=== PATIENT | male | born 1945 | race Caucasian/White ===

== ENCOUNTER 2018-08-10 17:35 | Inpatient (IN) ==
[2018-08-10] MEDS ORDERED: PATIENT'S OWN MED SUBQ SCH (20:00)
[2018-08-10] MEDS ORDERED: VANCOMYCIN IV PER PHARMACY MISC SCH (20:00)
[2018-08-10 20:42] LABS: BASO# 0.07 X1000 (0.0-0.2); BASO% 0.8 % (0.0-0.8); EOS% 4.7 % (0.0-10.0); HEMOGLOBIN 15.8 g/dL (14.0-18.0); IMM GRAN# 0.03 X1000 (0.0-0.04); IMM GRAN% 0.4 % (0.0-0.5); LYMPH# 2.96 X1000 (1.2-3.4); LYMPH% 34.6 % (20.5-51.1); MCH 32.5 PG (27-31); MCHC 35.1 g/dL (33-37); MCV 92.6 FL (81-99); MONO# 0.74 X1000 (0.11-0.59); MONO% 8.6 % (1.7-9.3); MPV 10.1 FL (7.4-10.4); NEUT# 4.36 X1000 (1.4-6.5); NEUT% 50.9 % (42.2-75.2); PLT 197 X1000 (130-400); RBC 4.86 XMIL (4.7-6.1); RDW 13.7 % (11.5-14.5); WBC 8.56 X1000 (4.8-10.8)
[2018-08-10 21:00] LABS: AGAP 9; ALB/GLOB RATIO 1.3; ALKALINE PHOSPHATASE 63 U/L (32-122); BUN 25 mg/dL (8-22); CALCIUM 9.4 mg/dL (8.8-10.2); CHLORIDE 103 mmol/L (98-107); COSMO 287; CREATININE 1.1 mg/dL (0.7-1.2); ESTIMATED GFR > 60; GLUCOSE 85 mg/dL (70-104); GOT 12 U/L (10-34); GPT 18 U/L (10-44); POTASSIUM 4.3 mmol/L (3.5-5.1); SODIUM 142 mmol/L (136-145); TCO2 30 mmol/L (25-35); TOTAL BILIRUBIN 0.25 mg/dL (0.20-1.00); TOTAL PROTEIN 7.2 g/dL (6.3-8.3)
[2018-08-10] MEDS ORDERED: VANCOMYCIN 2,000 MG in NS 500 ML IV ONE (21:00)
[2018-08-10 21:01] LABS: HEMOGLOBIN A1C 6.8 % (4.8-6.0)
--- NOTE | 2018-08-10 21:20 | Diag Imaging Result Doc PS360 ---
CHEST-2 VIEWS - 08/10/2018 INDICATION: SOB COMPARISON: None FINDINGS: There are sternotomy wires and an aortic valve replacement. There is a pacemaker in good position. Heart size is top normal. Pulmonary vascularity is grossly normal. No infiltrates or edema. No pneumothorax or pleural effusion. IMPRESSION: No acute disease. Electronically signed by Keaton Chapman 08/10/2018 9:18 PM
[2018-08-10] MEDS: BUSPAR PO SCH (21:52)
--- NOTE | 2018-08-10 22:54 | HISTORY AND PHYSICAL ---
CHIEF COMPLAINT: Nonhealing ulcer on the left leg about 3 inches in diameter with a foul-smelling discharge and redness consistent with cellulitis, started last week. HISTORY OF PRESENT ILLNESS: He is a 73-year-old white male, basically came in my office after outpatient treatment with left leg cellulitis with ulcer. Admitted to the hospital with possible MRSA. He has failed to improve with outpatient antibiotic for the last 1 week. As a result, a hospital admission was warranted. PAST MEDICAL HISTORY: CAD, early dementia, Folstein score 23/30, type 2 diabetes, hyperlipidemia, hypertension, hypothyroidism, rheumatoid arthritis. Left-sided weakness with right CVA, benign prostatic hypertrophy. PAST SURGICAL HISTORY: Permanent pacemaker bypass surgery replacement to the aortic valve. Recent prostate biopsy done by Dr. Hoover, negative. MEDICINES: Aricept 10 mg daily. BuSpar 30 mg p.o. b.i.d., Enbrel shots 25 mg every 2 weeks, folic acid 1 mg daily, Levaquin 500 daily. Metformin 1000 p.o. b.i.d., Namenda 10 mg daily, oxybutynin 10 b.i.d., insulin pump, methotrexate 2.5 mg 3 tablets once a week. ALLERGIES: Not known. SOCIAL HISTORY: . Three children. Lives in [place]. No smoking. No alcohol. FAMILY HISTORY: Father of [place] at 51. Mom at 78. PREVIOUS HEALTH MAINTENANCE: Artery flow studies 12/2016. ARNOLD 1.0. Influenza vaccine 12/2017. Pneumococcal 02/2012. Last physical exam 12/2017. Screening for AAA, 09/2013, normal. REVIEW OF SYSTEMS: HEENT: No headache. No vision problem. No earache. No sore throat. Neck: No goiter. No lymphadenopathy. No bruit. Cardiopulmonary: No chest pain, shortness of breath, PND, orthopnea. GI: No nausea, vomiting, abdominal pain. : History of BPH symptoms. Recent biopsy was negative and 4K score was 47%. Extremities: Swelling of legs on the left side with redness and also on the lateral part of the leg. Also has decreased sensory exam in both feet. Neuro: Stable deficits on the left side. PHYSICAL EXAMINATION: VITAL SIGNS: Temperature is 98.2, pulse 70, blood pressure 156/84, 5 feet 11 inches, 231 pounds. HEENT: Atraumatic, normocephalic. Pupils equal, react to light. TMs are normal. Nose and throat within normal limits. NECK: Supple. No lymphadenopathy. CHEST: Bilateral air entry. HEART: Sounds are regular. Belly is soft, obese, nontender. Good bowel sounds. EXTREMITIES: Left leg is swollen with redness, consistent with cellulitis with an ulcer about 3 inches in diameter, mid lateral part of the leg with foul smelling discharge noted. NEURO: Left hemiparesis noted. LABORATORY DATA: CBC: White cell count 8.5, hematocrit 45, platelets 197. D- dimer 0.56. Sodium 142, potassium 4.3, chloride 103, BUN 25, creatinine 1.9, glucose 85. A1c 6.8. Liver function tests proBNP were normal. ASSESSMENT AND PLAN: 1. A 73-year-old white male admitted to the hospital with left leg cellulitis with left hemiplegia and also an ulcer not healing. Outpatient treatment. Plan is IV vancomycin. Wound culture as well as consult by Babita. 2. D-dimer is normal no need for venous Dopplers at this time. 3. Lovenox for deep vein thrombosis prophylaxis. 4. Elevated PSA, 4K score 47%. Biopsy of the prostate is negative x2 by Dr. Hoover. 5. Early dementia on Aricept 10 mg daily. 6. Chronic anxiety on BuSpar 30 p.o. b.i.d. 7. Hypothyroidism, on Synthroid. 8. Hypertension on Norvasc 5 mg daily, benazepril 20 daily. 9. Insulin-dependent diabetes. Currently on insulin pump. 10. Rheumatoid arthritis on methotrexate, Enbrel. Will hold at this time given the risk of infection. Reconcile home medications. 11. History of aortic stenosis, status post aortic valve replacement, stable. 12. Right cerebrovascular accident with left hemiparesis, stable. 13. Complete heart block with status post permanent pacemaker. 14. History of coronary artery disease with bypass surgery, left internal mammary artery to left anterior descending, currently stable. We will follow up. cc: Stephen Mendiola MD MTDD
[2018-08-11] MEDS: ARICEPT PO SCH (09:07)
[2018-08-11] MEDS: NORVASC PO SCH (09:08)
[2018-08-11] MEDS: SYNTHROID PO SCH (09:08)
[2018-08-11] MEDS: ZYRTEC PO SCH (09:08)
[2018-08-11] MEDS: COLACE PO SCH (09:08)
[2018-08-11] MEDS: ASPIRIN PO SCH (09:08)
[2018-08-11] MEDS: LOTENSIN PO SCH (09:09)
[2018-08-11] MEDS: LOVENOX SUBQ SCH (09:09)
[2018-08-11] MEDS: BUSPAR PO SCH ×3 (09:09→20:14)
[2018-08-11] MEDS: VANCOMYCIN 1,800 MG in NS 250 ML IV SCH (16:12)
--- NOTE | 2018-08-11 19:07 | PROGRESS NOTE ---
DATE: 08/11/2018 SUBJECTIVE: Apparently, patient had a vasovagal attack embedded nurse while he was moving the bowels. Clinically he is doing very well, slightly constipated. Left leg is grossly edematous with redness with a 2 inch ulcer with a foul smelling discharge. Wound culture was obtained. PHYSICAL EXAMINATION: Vital Signs: He is afebrile, pulse 79, blood pressure is 148/76, 97% on room air. HEENT: Within normal limits. Chest: Clear. Heart: Sounds are regular. Abdomen: Belly is soft, nontender. Extremities: Left hemiparesis. Left leg has diffuse cellulitis noted. INVESTIGATIONS: Reviewed. A1c 6.8. Wound cultures are pending. ASSESSMENT AND PLAN: 1. Left leg cellulitis, most likely Methicillin-resistant Staphylococcus aureus. Continue intravenous vancomycin. Wound culture report pending. 2. Near syncope, vasovagal. Continue to monitor in telemetry. 3. D-dimer is negative. Continue with deep venous thrombosis prophylaxis. 4. Type 2 diabetes, insulin dependent. 5. Rheumatoid arthritis, off of methotrexate and Enbrel due to infection. 6. Coronary artery disease, status post bypass, stable. Continue present treatment. 7. Hypothyroidism, on Synthroid. 8. Will keep her over the weekend and reassess on Tuesday. LEVEL OF DOCUMENTATION: 25 minutes. cc: Stephen Mendiola MD
[2018-08-12] MEDS: ZYRTEC PO SCH (08:45)
[2018-08-12] MEDS: ASPIRIN PO SCH (08:45)
[2018-08-12] MEDS: BUSPAR PO SCH ×2 (08:45→16:53)
[2018-08-12] MEDS: SYNTHROID PO SCH (08:45)
[2018-08-12] MEDS: COLACE PO SCH (08:45)
[2018-08-12] MEDS: ARICEPT PO SCH (08:45)
[2018-08-12] MEDS: NORVASC PO SCH (08:46)
[2018-08-12] MEDS: LOTENSIN PO SCH (08:46)
[2018-08-12] MEDS: LOVENOX SUBQ SCH (08:46)
[2018-08-12] MEDS: VANCOMYCIN 1,800 MG in NS 250 ML IV SCH (11:35)
--- NOTE | 2018-08-12 12:52 | PROGRESS NOTE ---
DATE: 08/12/2018 SUBJECTIVE: Patient is stable. He is alert. Answers questions appropriately. He is eating well and had a bowel movement this morning, as he did yesterday. He has had no further presyncopal episodes. OBJECTIVE: Vital signs: Afebrile, pulse 95, respirations 16, blood pressure 157/91, O2 saturation on room air 97%. Cardiovascular: Regular rate and rhythm without murmur. Lungs: Clear. Abdomen: Protuberant, soft. Active bowel sounds. Nontender, nondistended. Extremities: No edema. There is mild brownish discoloration to the right hensley with no skin breakdown, no redness there. The left hensley has prominent redness and there is an ulcer that is currently dressed on the distal left mid to lateral hensley area. The patient says it seems about the same. Neurologic: Patient has left hemiparesis. No major facial asymmetry. LABORATORY DATA: Blood sugars in the mid 100s to low 200s. White count on admission was normal. ASSESSMENT: 1. Cellulitis of left lower extremity with a diabetic ulceration there as well. 2. Vasovagal syncope x1 yesterday. 3. Insulin-requiring diabetes mellitus, on insulin pump with A1c of 6.8. 4. Rheumatoid arthritis, off of methotrexate and Enbrel due to his current infection. 5. Coronary artery disease. 6. Hypothyroidism. 7. Hypertension. PLAN: We will add Kefzol to his vancomycin. Culture of the wound shows no growth and that is the final report, so we will need to broaden out to cover methicillin-sensitive Staph and other pathogens. Wound seems stable. Continue antihypertensives, monitoring of blood sugar and prophylaxis of DVT with Lovenox. cc: MD Stephen Wellington MD
[2018-08-12] MEDS: KEFZOL 1 GM/D5W 1 GM/50 ML IVPB IV SCH ×2 (14:02→21:29)
[2018-08-12] MEDS: DITROPAN PO SCH (16:53)
[2018-08-13] MEDS: VANCOMYCIN 1,800 MG in NS 250 ML IV SCH ×2 (03:18→23:50)
[2018-08-13] MEDS: KEFZOL 1 GM/D5W 1 GM/50 ML IVPB IV SCH ×3 (05:49→20:13)
[2018-08-13] MEDS: ARICEPT PO SCH (08:48)
[2018-08-13] MEDS: NAMENDA PO SCH (08:48)
[2018-08-13] MEDS: COLACE PO SCH (08:48)
[2018-08-13] MEDS: LOTENSIN PO SCH (08:48)
[2018-08-13] MEDS: ASPIRIN PO SCH (08:48)
[2018-08-13] MEDS: NORVASC PO SCH (08:48)
[2018-08-13] MEDS: SYNTHROID PO SCH (08:48)
[2018-08-13] MEDS: BUSPAR PO SCH ×2 (08:48→17:11)
[2018-08-13] MEDS: ZYRTEC PO SCH (08:48)
[2018-08-13] MEDS: DITROPAN PO SCH ×3 (08:48→17:11)
[2018-08-13] MEDS: LOVENOX SUBQ SCH (08:48)
--- NOTE | 2018-08-13 12:33 | PROGRESS NOTE ---
DATE: 08/13/2018 SUBJECTIVE: Patient is stable. OBJECTIVE: Afebrile. Vital signs stable. Blood pressure a little elevated at 164/98, O2 saturation 91%. CV: RRR. Lungs: Clear. Abdomen: Protuberant, soft, nontender. Active bowel sounds. Extremities: No major edema. Some redness over the right distal hensley but much more redness of the left distal hensley, ulceration there that is dressed. Neurologic: Moves but patient has chronic left hemiparesis. ASSESSMENT: 1. Cellulitis of left lower extremity with diabetic ulceration there. 2. Insulin-requiring diabetes mellitus. 3. Rheumatoid arthritis, off methotrexate and Enbrel due to his current infection. 4. Coronary artery disease. 5. Hypothyroidism. 6. Hypertension. PLAN: The patient is growing out some diphtheroids on the culture but nothing else so we will continue Kefzol and vancomycin, and his other medications and supportive measures, monitoring his blood sugars closely. Blood sugars in the low 200s primarily. cc: MD Stephen Wellington MD
[2018-08-14] MEDS: KEFZOL 1 GM/D5W 1 GM/50 ML IVPB IV SCH ×3 (05:51→20:59)
[2018-08-14] MEDS: NAMENDA PO SCH (10:45)
[2018-08-14] MEDS: LOTENSIN PO SCH (10:45)
[2018-08-14] MEDS: COLACE PO SCH (10:45)
[2018-08-14] MEDS: NORVASC PO SCH (10:45)
[2018-08-14] MEDS: ZYRTEC PO SCH (10:45)
[2018-08-14] MEDS: BUSPAR PO SCH ×2 (10:45→16:18)
[2018-08-14] MEDS: SYNTHROID PO SCH (10:46)
[2018-08-14] MEDS: ASPIRIN PO SCH (10:46)
[2018-08-14] MEDS: LOVENOX SUBQ SCH (10:46)
[2018-08-14] MEDS: DITROPAN PO SCH ×3 (10:46→16:18)
[2018-08-14] MEDS: ARICEPT PO SCH (10:47)
[2018-08-14] MEDS: VANCOMYCIN 1,800 MG in NS 250 ML IV SCH (16:17)
--- NOTE | 2018-08-14 19:37 | PROGRESS NOTE ---
DATE: 08/14/2018 SUBJECTIVE: The patient is anxious to go home. cannot handle. He is still bedridden with a stroke. Left leg redness is much improved. Ulcer is slowly healing. Cultures grew diphtheroids. OBJECTIVE: On examination, temperature is 98 degrees, pulse 97, blood pressure 129/81. HEENT: Within normal limits. Neck: Supple. Chest: Clear. Heart: Sounds are regular. Belly is soft, nontender. Neuro: Stable deficits. MICROBIOLOGY: Diphtheroids. ASSESSMENT AND PLAN: 1. Left leg cellulitis, improving on currently on IV cefazolin q.8 and discontinue vancomycin. 2. Right cerebrovascular accident with left hemiparesis, deconditioning with underlying comorbid conditions. Physical therapy. 3. Deep vein thrombosis prophylaxis with Lovenox. Gastrointestinal prophylaxis with IV Pepcid. Out of the bed with physical therapy. DISPOSITION: Family has agreed upon for rehab placement. Will do the administrator social welfare consult. LEVEL OF DOCUMENTATION: 25 minutes cc: Stephen Mendiola MD MTDD
[2018-08-15] MEDS: KEFZOL 1 GM/D5W 1 GM/50 ML IVPB IV SCH ×3 (05:45→20:28)
[2018-08-15] MEDS: DITROPAN PO SCH ×3 (08:52→18:42)
[2018-08-15] MEDS: LOTENSIN PO SCH (08:52)
[2018-08-15] MEDS: SYNTHROID PO SCH (08:52)
[2018-08-15] MEDS: ASPIRIN PO SCH (08:53)
[2018-08-15] MEDS: NORVASC PO SCH (08:53)
[2018-08-15] MEDS: BUSPAR PO SCH ×2 (08:53→18:42)
[2018-08-15] MEDS: COLACE PO SCH (08:53)
[2018-08-15] MEDS: ARICEPT PO SCH (08:53)
[2018-08-15] MEDS: LOVENOX SUBQ SCH (08:53)
[2018-08-15] MEDS: ZYRTEC PO SCH (08:53)
[2018-08-15] MEDS: NAMENDA PO SCH (08:53)
--- NOTE | 2018-08-15 18:58 | PROGRESS NOTE ---
DATE: 08/15/2018 SUBJECTIVE: Left leg is improved. He is able to get out of the bed. Family decided to go for rehab. OBJECTIVE: On exam temperature is 97 degrees, pulse is 90. Vital signs are stable. HEENT exam within normal limits. Neck is supple. No lymphadenopathy. Marked improvement of cellulitis as well as ulcer is healing. ASSESSMENT AND PLAN: 1. Cerebrovascular accident on the right side with left hemiparesis. Continue physical therapy. 2. Left leg cellulitis, improving on cefazolin. 3. Deconditioning, mild cognitive improvement. Waiting for Social Service consult for rehab placement. Continue present treatment. Family has agreed upon for rehab placement when a bed is available. We will discharge in the morning. Level of documentation 15 minutes. cc: Stephen Mendiola MD
[2018-08-15] MEDS: HUMULIN R SUBQ SCH (22:11)
[2018-08-16] MEDS: KEFZOL 1 GM/D5W 1 GM/50 ML IVPB IV SCH ×3 (04:16→21:03)
[2018-08-16] MEDS: HUMULIN R SUBQ SCH ×4 (06:32→21:04)
--- NOTE | 2018-08-16 08:50 | DISCHARGE SUMMARY ---
ADMISSION DATE: 08/10/2018 DISCHARGE DATE: 08/16/2018 DISCHARGE DIAGNOSES: 1. Left leg cellulitis. 2. Left leg traumatic ulcer 1 cm healing. OTHER DIAGNOSES: 1. CAD. 2. Dementia. Folstein score 23/30. 3. Type 2 diabetes. 4. Hyperlipidemia. 5. Hypertension. 6. Hypothyroidism. 7. Rheumatoid arthritis. 8. Left-sided weakness with right CVA. 9. Benign prostatic hypertrophy. BRIEF HISTORY: Please see the H and P that was done on 08/10/2018. In brief, he is a 73-year-old white male admitted to the hospital with left leg cellulitis and nonhealing ulcer on the lateral part of the left leg. HOSPITAL COURSE: Patient was given IV antibiotics with vancomycin. Subsequently, changed to the Keflex. Wound cultures grew diphtheroids. He has complete resolution of cellulitis, and the ulcer is healing very well. He has a lot of comorbid conditions for which family is requesting to go for rehab for convalescence. Rest of the hospital course was uneventful. LABORATORY: CBC: White cell count 8.5, hematocrit 45 and platelets 197,000. D-dimer 0.56. SMA 7 is normal. A1c 6.8. LFTs: ProBNP was normal. DISCHARGE INSTRUCTIONS: 1. Hold the Enbrel methotrexate until ulcer healing. Continue insulin pump, aspirin 325 daily, amlodipine 5 mg daily, Naprosyn 500 b.i.d. as needed, benazepril 20 mg daily, Synthroid 137 mcg daily, BuSpar 30 p.o. b.i.d., cetirizine 10 daily, Colace 100 daily, Aricept 10 daily, Myrbetriq 50 daily, Flonase as needed, Namenda 5 daily, Keflex 500 t.i.d. for 10 days. 2. Local wound care. 3. Out of the bed with physical therapy. 4. Follow up on sliding scale with insulin coverage. 5. Follow up in my office in 2 weeks. cc: Stephen Mendiola MD
[2018-08-16] MEDS: ZYRTEC PO SCH (09:00)
[2018-08-16] MEDS: LOTENSIN PO SCH (09:00)
[2018-08-16] MEDS: BUSPAR PO SCH ×2 (09:00→16:54)
[2018-08-16] MEDS: SYNTHROID PO SCH (09:00)
[2018-08-16] MEDS: COLACE PO SCH (09:00)
[2018-08-16] MEDS: ARICEPT PO SCH (09:00)
[2018-08-16] MEDS: NORVASC PO SCH (09:00)
[2018-08-16] MEDS: NAMENDA PO SCH (09:00)
[2018-08-16] MEDS: DITROPAN PO SCH ×3 (09:00→16:53)
[2018-08-16] MEDS: ASPIRIN PO SCH (09:00)
[2018-08-16] MEDS: LOVENOX SUBQ SCH (09:01)
--- NOTE | 2018-08-16 19:45 | PROGRESS NOTE ---
DATE: 08/16/2018 SUBJECTIVE: The paperwork was done for the fdc placement. I spoke to social science manager. Waiting for bed placement. REVIEW OF SYSTEMS: None reported. EXAMINATION: Temperature is 98 degrees, pulse is 89. Blood pressure is stable. PHYSICAL EXAMINATION: No change. Left leg ulcer and redness is much improved. ASSESSMENT AND PLAN: 1. Resolving left leg cellulitis. 2. The patient is ready to be discharged. 3. The patient's wants to go for rehab. He is reluctant to go. Follow up with Chief Information Officer for disposition. Paperwork was done for the fdc placement. 4. Other options are discussed with the patient's . 5. Insulin dependent diabetes off on insulin pump. Follow up on sliding scale with insulin coverage. Continue present treatment. Hold the methotrexate and Enbrel until the infection subsides for underlying rheumatoid arthritis. LEVEL OF DOCUMENTATION: 25 minutes. cc: Stephen Mendiola MD
[2018-08-17] MEDS: KEFZOL 1 GM/D5W 1 GM/50 ML IVPB IV SCH ×2 (04:06→14:09)
[2018-08-17] MEDS: HUMULIN R SUBQ SCH ×2 (06:18→11:49)
[2018-08-17] MEDS: NAMENDA PO SCH ×2 (07:58→08:00)
[2018-08-17] MEDS: ARICEPT PO SCH ×2 (07:58→08:00)
[2018-08-17] MEDS: LOVENOX SUBQ SCH (07:59)
[2018-08-17] MEDS: LOTENSIN PO SCH (07:59)
[2018-08-17] MEDS: COLACE PO SCH (07:59)
[2018-08-17] MEDS: SYNTHROID PO SCH (07:59)
[2018-08-17] MEDS: DITROPAN PO SCH ×2 (07:59→14:09)
[2018-08-17] MEDS: NORVASC PO SCH (07:59)
[2018-08-17] MEDS: BUSPAR PO SCH (07:59)
[2018-08-17] MEDS: ZYRTEC PO SCH (07:59)
[2018-08-17] MEDS: ASPIRIN PO SCH (07:59)
[2018-08-17 13:50] VITALS: BP 119/50
== END 2018-08-17 16:40 | DRG 603 ==
LOC: DIRADM 17:35 → 3N 18:24
PROVIDERS: ADMIT Internal Medicine; ATTEND Internal Medicine
CPT/HCPCS: 71020; 71046; 80053; 80202; 82948; 83036; 83880; 85025; 85379; 87070; 97110; 97162; 97530; A9270; J0690; J1650; J3370; J7040; J7050; XXXXX

== ENCOUNTER 2019-02-10 17:30 | Observation (INO) ==
[2019-02-10] MEDS ORDERED: STERILE WATER INJ. INJ ONE (18:53)
[2019-02-10] MEDS ORDERED: GEODON IM ONE (18:53)
--- NOTE | 2019-02-10 20:12 | EKG Report ---
Test Performed on : 02/10/2019 8:05:05 PM Test Reason : AMS Blood Pressure : / mmHG Vent. Rate : 080 BPM Atrial Rate : 080 BPM P-R Int : 160 ms QRS Dur : 094 ms QT Int : 398 ms P-R-T Axes : 040 015 068 degrees QTc Int : 459 ms Normal sinus rhythm. Normal ECG When compared with ECG of 12-AUG-2015 07:20, T wave inversion no longer evident in Lateral leads Unconfirmed Result
[2019-02-10 20:32] LABS: BASO# 0.06 X1000 (0.0-0.2); BASO% 0.7 % (0.0-0.8); EOS# 0.24 X1000 (0.0-0.7); EOS% 2.9 % (0.0-10.0); HEMATOCRIT 45.8 % (42.0-52.0); HEMOGLOBIN 15.6 g/dL (14.0-18.0); IMM GRAN# 0.02 X1000 (0.0-0.04); IMM GRAN% 0.2 % (0.0-0.5); LYMPH% 29.7 % (20.5-51.1); MCH 32.2 PG (27-31); MCHC 34.1 g/dL (33-37); MCV 94.4 FL (81-99); MONO# 0.58 X1000 (0.11-0.59); MONO% 6.9 % (1.7-9.3); NEUT# 5.01 X1000 (1.4-6.5); NEUT% 59.6 % (42.2-75.2); PLT 259 X1000 (130-400); RBC 4.85 XMIL (4.7-6.1); RDW 13.4 % (11.5-14.5); WBC 8.41 X1000 (4.8-10.8)
[2019-02-10 20:39] LABS: INR 0.98; PROTIME 13.1 Seconds (11.0-16.0)
[2019-02-10 20:40] LABS: PTT 26.7 Seconds (22.3-41.8)
[2019-02-10 20:55] LABS: AGAP 14; ALB/GLOB RATIO 1.6; ALBUMIN 4.1 g/dL (3.5-5.0); ALKALINE PHOSPHATASE 76 U/L (32-122); BUN 20 mg/dL (8-22); CALCIUM 9.5 mg/dL (8.8-10.2); CHLORIDE 101 mmol/L (98-107); CK PROFILE 95 U/L (24-204); COSMO 287; ESTIMATED GFR > 60; GLUCOSE 180 mg/dL (70-104); GOT 18 U/L (10-34); GPT 40 U/L (10-44); POTASSIUM 4.4 mmol/L (3.5-5.1); SODIUM 140 mmol/L (136-145); TCO2 25 mmol/L (25-35); TOTAL BILIRUBIN 0.36 mg/dL (0.20-1.00); TOTAL PROTEIN 6.7 g/dL (6.3-8.3)
--- NOTE | 2019-02-10 20:59 | Diag Imaging Result Doc PS360 ---
EXAM: CT HEAD W/O CONTRAST HISTORY: altered mental status TECHNIQUE: CT head without contrast COMPARISON: 08/18/2017 FINDINGS: No parenchymal hemorrhage. No epidural or subdural hematoma. No subarachnoid hemorrhage. Multiple old infarcts as well as chronic microvascular ischemic changes. No mass identified on this noncontrasted exam. No hydrocephalus. No sinus opacification. IMPRESSION: 1.No hemorrhage 2.Multiple old infarcts as well as chronic microvascular ischemic changes. This exam was performed using automated exposure control, adjustment of mA or kV according to patient size, and/or use of iterative reconstruction technique. Electronically signed by Harrison Easley 02/10/2019 8:57 PM
--- NOTE | 2019-02-10 21:02 | Diag Imaging Result Doc PS360 ---
EXAM: CHEST-PORTABLE HISTORY: ams TECHNIQUE: Single view COMPARISON: 08/10/2018 FINDINGS: The lungs are well expanded. The heart is not enlarged. There are sternal wires and a left-sided pacemaker. The vessels are not distended. There are no infiltrates. No effusion identified. IMPRESSION: Negative exam. Electronically signed by aHrrison Easley 02/10/2019 9:00 PM
[2019-02-10 21:21] LABS: URINE SOURCE CLEAN CATCH
[2019-02-10 21:35] LABS: BILIRUBIN URINE NEGATIVE (NEGATIVE); BLOOD URINE NEGATIVE (NEGATIVE); COLOR YELLOW; GLUCOSE URINE TRACE mg/dL (NEGATIVE); KETONE URINE NEGATIVE (NEGATIVE); LEUKOCYTES URINE LARGE (NEGATIVE); NITRITE URINE NEGATIVE (NEGATIVE); PROTEIN URINE TRACE mg/dL (NEGATIVE); SP GRAVITY URINE 1.016; TURBIDITY URINE HAZY (CLEAR); UROBILINOGEN URINE NORMAL (NORMAL)
[2019-02-10 21:36] LABS: UR EPITHELIAL CELLS <10 /HPF (<10); URINE BACTERIA 4+ /HPF; URINE RBC <10 /HPF (<10); URINE WBC TNTC /HPF (<10)
[2019-02-10] MEDS ORDERED: ATIVAN IV ONE (21:36)
[2019-02-10 21:37] LABS: UR AMPHETAMINES QUAL NONE DETECTED (NONE DETECT); UR BARBITUATES QUAL NONE DETECTED (NONE DETECT); UR BENZODIAZEPIN QUAL NONE DETECTED (NONE DETECT); UR CANNABINOIDS QUAL NONE DETECTED (NONE DETECT); UR COCAINE QUAL NONE DETECTED (NONE DETECT); UR METHADONE QUAL NONE DETECTED (NONE DETECT); UR OPIATES QUAL NONE DETECTED (NONE DETECT); UR OXYCODONE QUAL NONE DETECTED (NONE DETECT); UR PCP QUAL NONE DETECTED (NONE DETECT)
[2019-02-10 21:39] LABS: FREE T4 1.39 ng/dL (0.93-1.70); TSH 4.24 uIUmL (0.27-4.20)
--- NOTE | 2019-02-10 22:38 | PROVIDER DOCUMENTATION ---
This chart was entered by Markie Velez Scribe, acting as scribe for Penny Torres MD. HPI-Psychological Disorder - General Chief Complaint: Altered Mental Status Stated Complaint: DEMENTIA Time Seen by Provider: 02/10/19 18:39 Source: patient Allergies/Adverse Reactions: Patient Allergies Allergy/AdvReac Type Severity Reaction Status Date / Time Sulfa (Sulfonamide Allergy RASH Verified 05/08/18 09:03 Antibiotics) codeine AdvReac Unknown Verified 05/08/18 09:03 diazepam [From Valium] AdvReac Unknown Verified 05/08/18 09:03 Latex, Natural Rubber AdvReac ITCHING Verified 05/08/18 09:03 Home Medications: Home Medication List Medication Instructions Recorded Confirmed Last Taken Type Amlodipine Besylate 5 mg PO DAILY 08/11/15 02/10/19 02/10/19 History Aspirin 325 mg PO DAILY 08/11/15 02/10/19 02/10/19 History BENAZEpril [Lotensin] 20 mg PO DAILY 08/11/15 02/10/19 02/10/19 History Levothyroxine [Synthroid] 137 microgm PO DAILY 08/11/15 02/10/19 02/10/19 History Naproxen 500 mg PO BID 08/11/15 02/10/19 02/10/19 History Subcutaneous Insulin Pump [Insulin 1 each MC DIRECTED 01/04/17 02/10/19 02/10/19 History Pump] Buspirone [Buspar] 30 mg PO BID 05/08/18 02/10/19 02/10/19 History Cetirizine [Zyrtec] 10 mg PO DAILY 05/08/18 02/10/19 02/10/19 History Donepezil [Aricept] 10 mg PO DAILY 05/08/18 02/10/19 02/10/19 History Memantine [Namenda] 10 mg PO DAILY 08/10/18 02/10/19 02/10/19 History Mirabegron [Myrbetriq] 50 mg PO DAILY 08/10/18 02/10/19 02/10/19 History Escitalopram [Lexapro] 10 mg PO DAILY 02/10/19 02/10/19 02/10/19 History Oxybutynin Chloride [Oxybutynin 10 mg PO TID 02/10/19 02/10/19 02/10/19 History Chloride ER] - History of Present Illness-Psych Nature of Presenting Problem: Pt is a 73 y/o with a h/o dementia, compliant with medications, brought to the ED by his for behavioral changes, being aggressive to her the last 2 months and got worse yesterday. She reports he his Dementia with some Hallucination lately. She has noticed a cough. His aggressive behaviour toward her is of concern to her . Yesterday, he reports having a knife and that he wants to kill himself with him. A visible bruise was noted on ,s right arm Onset/Duration: reports: other (2 months) Timing: reports: still present, getting worse Severity: reports: mild Situational problems related to:: reports: spouse Psychiatric Complaints: reports: angry, agitated, hallucinating Substance Use: reports: none/never Previous psych related hospitalizations?: No Patient arrived by:: private car Similar Symptoms Previously?: Yes Recently seen or treated by another doctor?: Yes Review of Systems - Adult - REVIEW OF SYSTEMS - ADULT ROS:: ROS per family () Constitutional: denies: chills, fever Eyes: reports: no symptoms reported Ears, Nose, Mouth & Throat: denies: ear pain, hearing loss Cardiovascular: denies: chest pain, edema Respiratory: reports: cough. denies: shortness of breath, wheezing Gastrointestinal: denies: abdominal pain, nausea, vomiting Genitourinary: reports: no symptoms reported Musculoskeletal: denies: back pain, neck pain Integumentary: reports: no symptoms reported Neurological: denies: dizziness/vertigo, headache/migraines Psychiatric: reports: emotional problems, suicidal thoughts Endocrine: reports: no symptoms reported Hematologic/Lymphatic: reports: no symptoms reported Allergic/Immunologic: reports: no symptoms reported All Other Systems: Reviewed and Negative Past History - Adult - PAST MEDICAL HISTORY-ADULT Review of Records: reports: Old Records Reviewed, Nursing Assessment Review, Medications Reviewed, Social history reviewed & non-contributory. Cardiovascular: reports: HTN Respiratory: reports: denies history Gastrointestinal: reports: denies history Genitourinary: reports: denies history Musculoskeletal: reports: denies history Neurological: reports: CVA Psychiatric: reports: other (Alzheimers) Endocrine/Immune: reports: Diabetes - IMMUNIZATION STATUS Childhood Immunizations: See Nurse Assessment Flu Vaccine: See Nurse Assessment - FAMILY HISTORY Family History: reviewed, not pertinent - SOCIAL HISTORY Smoking: non-smoker Substance Use: none/never Alcohol Use Frequency: never Living Situation: family Physical Exam-Psych Focus - Physical Exam-Psych Initial Vital Signs Reviewed: Yes Appearance: appropriate appearance, neat, combative (with his ), impaired insight, other Neurological: alert, oriented x 3, agitated (confused) Behavior/Eye Contact/Speech: cooperative, good eye contact Thoughts/Hallucinations: paranoid. negative: normal thought pattern, phobic HENMT: moist mucous membranes, normal ENT inspection, pharynx normal Neck: non-tender, full range of motion, supple, normal inspection Respiratory: lungs clear, normal breath sounds, no pleuratic chest pain, no respiratory distress Cardiovascular: normal peripheral pulses, regular rate, rhythm Abdominal Exam: normal bowel sounds, non tender, soft Back Exam: normal inspection, no CVA tenderness, no vertebral tenderness Extremity: normal range of motion, normal gait. negative: normal inspection (venastatis lower extremities) Integumentary: normal color, normal turgor, warm/dry Progress - PLAN OF CARE/RESULTS Progress/Plan/Lab Results: Laboratory Results - last 24 hr 02/10/19 02/10/19 02/10/19 18:54 20:12 20:12 WBC 8.41 RBC 4.85 Hgb 15.6 Hct 45.8 MCV 94.4 MCH 32.2 H MCHC 34.1 RDW Std Deviation 13.4 Plt Count 259 MPV 10.0 Immature Gran % (Auto) 0.2 Neut % (Auto) 59.6 Lymph % (Auto) 29.7 Wilkinson % (Auto) 6.9 Eos % (Auto) 2.9 Baso % (Auto) 0.7 Immature Gran # (Auto) 0.02 Neut # (Auto) 5.01 Lymph # (Auto) 2.50 Wilkinson # (Auto) 0.58 Eos # (Auto) 0.24 Baso # (Auto) 0.06 PT INR PTT (Actin FS) Sodium Potassium Chloride Carbon Dioxide Anion Gap BUN Creatinine Estimated GFR/1.73 m2 BUN/Creatinine Ratio Glucose POC Glucose 153 H Calculated Osmolality Calcium Total Bilirubin AST ALT Alkaline Phosphatase Creatine Kinase Troponin T Total Protein Albumin Globulin Albumin/Globulin Ratio Plasma Lactate Vitamin B12 TSH Free T4 Urine Source Urine Color Urine Turbidity Urine pH Ur Specific [place] Urine Protein Ur Glucose (Stick) Ur Ketones (Stick) Urine Blood Urine Nitrite Urine Bilirubin Urobilinogen Dipstick Urine Leukocytes Urine WBC (Auto) Urine RBC (Auto) U Epithel Cells (Auto) Urine Bacteria (Auto) Urine Opiates Screen Ur Oxycodone Screen Ur Methadone, Qual Ur Barbiturates Screen Ur Phencyclidine Scrn Ur Amphetamines Screen U Benzodiazepines Scrn Urine Cocaine Screen U Cannabinoids Screen Plasma/Serum Ethyl Alc 02/10/19 02/10/19 02/10/19 20:12 20:12 20:12 WBC RBC Hgb Hct MCV MCH MCHC RDW Std Deviation Plt Count MPV Immature Gran % (Auto) Neut % (Auto) Lymph % (Auto) Wilkinson % (Auto) Eos % (Auto) Baso % (Auto) Immature Gran # (Auto) Neut # (Auto) Lymph # (Auto) Wilkinson # (Auto) Eos # (Auto) Baso # (Auto) PT 13.1 INR 0.98 PTT (Actin FS) 26.7 Sodium 140 Potassium 4.4 Chloride 101 Carbon Dioxide 25 Anion Gap 14 BUN 20 Creatinine 1.0 Estimated GFR/1.73 m2 > 60 BUN/Creatinine Ratio 20 Glucose 180 H POC Glucose Calculated Osmolality 287 Calcium 9.5 Total Bilirubin 0.36 AST 18 ALT 40 Alkaline Phosphatase 76 Creatine Kinase 95 Troponin T Total Protein 6.7 Albumin 4.1 Globulin 2.6 Albumin/Globulin Ratio 1.6 Plasma Lactate 0.7 Vitamin B12 TSH Free T4 Urine Source Urine Color Urine Turbidity Urine pH Ur Specific [place] Urine Protein Ur Glucose (Stick) Ur Ketones (Stick) Urine Blood Urine Nitrite Urine Bilirubin Urobilinogen Dipstick Urine Leukocytes Urine WBC (Auto) Urine RBC (Auto) U Epithel Cells (Auto) Urine Bacteria (Auto) Urine Opiates Screen Ur Oxycodone Screen Ur Methadone, Qual Ur Barbiturates Screen Ur Phencyclidine Scrn Ur Amphetamines Screen U Benzodiazepines Scrn Urine Cocaine Screen U Cannabinoids Screen Plasma/Serum Ethyl Alc 02/10/19 02/10/19 02/10/19 20:12 20:12 21:15 WBC RBC Hgb Hct MCV MCH MCHC RDW Std Deviation Plt Count MPV Immature Gran % (Auto) Neut % (Auto) Lymph % (Auto) Wilkinson % (Auto) Eos % (Auto) Baso % (Auto) Immature Gran # (Auto) Neut # (Auto) Lymph # (Auto) Wilkinson # (Auto) Eos # (Auto) Baso # (Auto) PT INR PTT (Actin FS) Sodium Potassium Chloride Carbon Dioxide Anion Gap BUN Creatinine Estimated GFR/1.73 m2 BUN/Creatinine Ratio Glucose POC Glucose Calculated Osmolality Calcium Total Bilirubin AST ALT Alkaline Phosphatase Creatine Kinase Troponin T < 0.010 Total Protein Albumin Globulin Albumin/Globulin Ratio Plasma Lactate Vitamin B12 514 TSH 4.24 H Free T4 1.39 Urine Source CLEAN CATCH Urine Color YELLOW Urine Turbidity HAZY Urine pH 6.0 Ur Specific [place] 1.016 Urine Protein TRACE A Ur Glucose (Stick) TRACE Ur Ketones (Stick) NEGATIVE Urine Blood NEGATIVE Urine Nitrite NEGATIVE Urine Bilirubin NEGATIVE Urobilinogen Dipstick NORMAL Urine Leukocytes LARGE A Urine WBC (Auto) TNTC A Urine RBC (Auto) <10 U Epithel Cells (Auto) <10 Urine Bacteria (Auto) 4+ Urine Opiates Screen Ur Oxycodone Screen Ur Methadone, Qual Ur Barbiturates Screen Ur Phencyclidine Scrn Ur Amphetamines Screen U Benzodiazepines Scrn Urine Cocaine Screen U Cannabinoids Screen Plasma/Serum Ethyl Alc 02/10/19 21:15 WBC RBC Hgb Hct MCV MCH MCHC RDW Std Deviation Plt Count MPV Immature Gran % (Auto) Neut % (Auto) Lymph % (Auto) Wilkinson % (Auto) Eos % (Auto) Baso % (Auto) Immature Gran # (Auto) Neut # (Auto) Lymph # (Auto) Wilkinson # (Auto) Eos # (Auto) Baso # (Auto) PT INR PTT (Actin FS) Sodium Potassium Chloride Carbon Dioxide Anion Gap BUN Creatinine Estimated GFR/1.73 m2 BUN/Creatinine Ratio Glucose POC Glucose Calculated Osmolality Calcium Total Bilirubin AST ALT Alkaline Phosphatase Creatine Kinase Troponin T Total Protein Albumin Globulin Albumin/Globulin Ratio Plasma Lactate Vitamin B12 TSH Free T4 Urine Source Urine Color Urine Turbidity Urine pH Ur Specific [place] Urine Protein Ur Glucose (Stick) Ur Ketones (Stick) Urine Blood Urine Nitrite Urine Bilirubin Urobilinogen Dipstick Urine Leukocytes Urine WBC (Auto) Urine RBC (Auto) U Epithel Cells (Auto) Urine Bacteria (Auto) Urine Opiates Screen NONE DETECTED Ur Oxycodone Screen NONE DETECTED Ur Methadone, Qual NONE DETECTED Ur Barbiturates Screen NONE DETECTED Ur Phencyclidine Scrn NONE DETECTED Ur Amphetamines Screen NONE DETECTED U Benzodiazepines Scrn NONE DETECTED Urine Cocaine Screen NONE DETECTED U Cannabinoids Screen NONE DETECTED Plasma/Serum Ethyl Alc Orders Category Date Time Status Admit - [facility] Routine AdmDCTranf 02/11/19 00:39 Active Activity - Up with Assistance ORDERED Care 02/11/19 00:39 Active Apply Mechanical Device [QM] ORDERED Care 02/11/19 00:39 Active Finger Stick Blood Sugar (ED) DIRECTED Care 02/10/19 18:14 Completed Intake and Output-Strict ORDERED Care 02/11/19 00:39 Active Neurological Check ORDERED Care 02/11/19 00:39 Active Nursing- MD Consult Request ROUTINE Care 02/11/19 00:39 Active Saline Loc NOW Care 02/10/19 18:14 Completed Vital Signs Order Q 8-HR ASSESS Care 02/11/19 00:39 Active Z-Document. for Tele Applied ORDERED Care 02/11/19 00:39 Completed MD [Physician/Provider Consults] Routine Cons 02/11/19 00:39 Ordered Heart Healthy Diet Diet 02/11/19 00:39 Active CHEST-PORTABLE [RAD] Stat Exams 02/10/19 18:[address] HEAD W/O CONTRAST [CT] Stat Exams 02/10/19 18:52 Completed ALCOHOL BLOOD Stat Lab 02/10/19 20:12 Completed BASIC METABOLIC PANEL [CHEM] Routine Lab 02/11/19 06:51 Completed BLOOD CULTURE [BLDCUL] Stat Lab 02/11/19 00:05 Results CBC WITH DIFF [HEME] Routine Lab 02/11/19 06:51 Completed CBC WITH ELECTRONIC DIFF [HEME] Stat Lab 02/10/19 20:12 Completed CK PROFILE [SP CHEM] Stat Lab 02/10/19 20:12 Completed COMPREHENSIVE METABOLIC PANEL [CHEM] Stat Lab 02/10/19 20:12 Completed FREE T4 Stat Lab 02/10/19 20:12 Completed LACTATE, PLASMA [CHEM] Stat Lab 02/10/19 20:12 Completed MAGNESIUM [CHEM] Routine Lab 02/11/19 06:51 Completed PROTIME WITH INR [COAG] Stat Lab 02/10/19 20:12 Completed PTT [COAG] Stat Lab 02/10/19 20:12 Completed TROPONIN T Stat Lab 02/10/19 20:12 Completed TSH Stat Lab 02/10/19 20:12 Completed URINALYSIS W/POSS RFLX CULT [URINALYSIS] Stat Lab 02/10/19 21:15 Completed URINE CULTURE [RM] Routine Lab 02/10/19 21:45 Received URINE DRUG SCREEN Stat Lab 02/10/19 21:15 Completed VITAMIN B12 Stat Lab 02/10/19 20:12 Completed 0.9% Sodium Chloride Inj [Ns] 1,000 ml Med 02/11/19 00:39 Active IV 80 mls/hr 0.9% Sodium Chloride Inj [Ns] 1,000 ml Med 02/10/19 23:00 Discontinued IV 85 mls/hr Acetaminophen [Tylenol] Med 02/11/19 00:39 Active 650 mg PO Q6H PRN PRN Amlodipine [Norvasc] Med 02/11/19 09:00 Active 5 mg PO DAILY Aspirin Med 02/11/19 09:00 Active 325 mg PO DAILY BENAZEpril [Lotensin] Med 02/11/19 09:00 Active 20 mg PO DAILY Buspirone [Buspar] Med 02/11/19 09:00 Active 30 mg PO BID CefTRIAXONE [Rocephin] 1 gm Med 02/10/19 23:01 Discontinued 0.9% Sodium Chloride Inj [Ns] 50 ml IV NOW CefTRIAXONE [Rocephin] 1 gm Med 02/11/19 23:00 Active 0.9% Sodium Chloride Inj [Ns] 50 ml IV Q24H Donepezil [Aricept] Med 02/11/19 09:00 Active 10 mg PO DAILY Escitalopram [Lexapro] Med 02/11/19 09:00 Active 10 mg PO DAILY Levothyroxine [Synthroid] Med 02/11/19 07:00 Active 137 microgm PO DAILY@0700 Lorazepam [Ativan] Med 02/10/19 21:36 Discontinued 1 mg IV NOW ONE Memantine [Namenda] Med 02/11/19 09:00 Active 10 mg PO DAILY Mirabegron E.r. [Myrbetriq E.r] Med 02/11/19 09:00 Active 50 mg PO DAILY Ondansetron [Zofran] Med 02/11/19 00:39 Active 4 mg IV Q4H PRN PRN Patient's Own Med Med 02/11/19 02:15 Active 0 each MISC DIRECTED Water, Sterile Inj [Sterile Water Inj.] Med 02/10/19 18:53 Discontinued 1.2 ml INJ NOW ONE Ziprasidone [Geodon] Med 02/10/19 18:53 Discontinued 10 mg IM NOW ONE Telemetry [OM.EQ] Routine Oth 02/11/19 00:39 Active EKG [EKG] Stat Ther 02/10/19 20:54 Ordered Transfer/Admit Order [TRANSFER] Routine Transfer 02/10/19 23:33 Completed Result Diagrams: 02/11/19 06:51 02/11/19 06:51 - REASSESSMENT Reassessment #1 Time Reassessed: 22:00 Status: improving (patient agitation was initially improved with geodon and he is presently becoming uncooperative and fighting to be discharge.) Reassessment #2 Time Reassessed: 22:35 Status: improving (patient is now calm with the dose of ativan, sleeping comfortably with at bed side) - EKG 1 Time of EKG reading by physician:: 20:05 EKG Read and Signed by:: Penny Torres EKG Interpretation (*Must complete 3 of following elements*): Normal Rate: 80 Rhythm: NSR Gaston: normal - CONSULTS/PCP/HOSPITALIST Notification #1 *Consult/PCP/Hospitalist*: Dr Gupta Time Discussed: 23:02 Consult Disposition: Admit Departure - Departure Date of Disposition Decision: 02/10/19 Time of Disposition Decision: 22:59 DIAGNOSIS: Alzheimer's dementia with behavioral disturbance Qualifiers: Alzheimer's disease onset: unspecified onset Qualified Code(s): G30.9 - Alzheim er's disease, unspecified UTI (urinary tract infection) Qualifiers: Urinary tract infection type: site unspecified Hematuria presence: without hematuria Qualified Code(s): N39.0 - Urinary tract infection, site not specified Disposition: ADMITTED INPATIENT 09 Certified Medical Emergency: Emergent Condition: Fair - Critical Care Note This patient required my direct & personal management of CC.: No Attestation - Physician/ MARTIN Attestation Patient care was provided by Advanced Practice Provider:: No The physician spent face to face time with patient:: Yes Advanced Practice Provider documentation review:: Supervising physician onsite and consulted in the evaluation and care of this patient. The physician did have a face to face encounter with the patient. This chart was documented by the indicated scribe, (Speegle,Markie, Scribe) and accurately reflects the services I performed and decisions made by me, Penny Torres MD, as attested by the provider's signature.
[2019-02-10] MEDS ORDERED: NS 1,000 ML IV ONE (23:00)
[2019-02-10] MEDS ORDERED: ROCEPHIN 1 GM in NS 50 ML IV ONE (23:01)
[2019-02-11] MEDS ORDERED: ZOFRAN IV PRN (00:39)
[2019-02-11] MEDS ORDERED: TYLENOL PO PRN (00:39)
[2019-02-11] MEDS ORDERED: PATIENT'S OWN MED MISC SCH (02:15)
--- NOTE | 2019-02-11 03:19 | HISTORY AND PHYSICAL ---
PRIMARY CARE PHYSICIAN: Dr. Mendiola. CHIEF COMPLAINT: Altered mental status, agitation. HISTORY OF PRESENTING ILLNESS: A 73-year-old male with dementia, hypertension, diabetes mellitus type 2, coronary artery disease and CVA, who had presented to emergency department with several days history of worsening agitation and confusion. Apparently, as per his this has been going on for past 2 months. It has been worsened over the past several days. The is concerned that she cannot take care of him. The patient was brought to the emergency department. He did have a urinalysis which did show positive leukocytes and there was a concern of possible UTI. Due to his overall presenting symptoms, it was thought that we will place him for observation for further evaluation and management. At the time of my examination, patient was resting. He had been given some sedation and most of the history is obtained from his . PAST MEDICAL HISTORY: Includes dementia, hypertension, diabetes mellitus type 2, coronary artery disease, CVA with left-sided deficit. PAST SURGICAL HISTORY: Coronary artery bypass, coronary stent, pacemaker. ALLERGIES: Codeine. CURRENT MEDICATIONS: Include amlodipine 5 mg p.o. daily, aspirin 325 mg p.o. daily, benazepril 20 mg p.o. daily, buspirone 30 mg p.o. b.i.d., donepezil 10 mg p.o. daily, Lexapro 10 mg p.o. daily, levothyroxine 137 mcg p.o. daily, Namenda 10 mg p.o. daily, Myrbetriq 50 mg p.o. daily, oxybutynin 10 mg p.o. t.i.d., insulin pump. SOCIAL HISTORY: He is a former smoker. No history of alcohol or illicit drug use. FAMILY HISTORY: No history of coronary artery disease. REVIEW OF SYSTEMS: Unable to obtain due to patient being somewhat sedated. PHYSICAL EXAMINATION: GENERAL: The patient is resting comfortably. VITAL SIGNS: Temperature 97.9 degrees, pulse 79, respiration 18, blood pressure 153/81, saturating 98%. HEENT: Atraumatic, normocephalic. NECK: No masses. CHEST: Clear to auscultation. CARDIOVASCULAR: Regular rate and rhythm. ABDOMEN: Soft. Positive bowel sounds. EXTREMITIES: No edema. NEUROLOGIC: Patient is arousable. GENITOURINARY: No bladder distention. SKIN: Warm. LABORATORIES AND STUDIES: Sodium 140, potassium 4.4, chloride 101, CO2 is 25, BUN is 20, creatinine is 1.0, glucose 180. WBCs 8.41, hemoglobin 15.6, hematocrit 45.8, platelets 259,000. Toxicology screen negative. ASSESSMENT: A 73-year-old male with a history of dementia, hypertension, diabetes mellitus type 2 and coronary artery disease, who had presented to emergency department with worsening mental status changes over the past several days. He was evaluated in the emergency department and there was suspicion for possible UTI. Subsequently, we will place the patient for observation for further evaluation and management. 1. Altered mental status, multifactorial. 2. Probable advanced dementia with behavioral disturbance. 3. Hypertension. 4. Diabetes mellitus type 2. 5. Suspected urinary tract infection. PLAN: 1. We will admit patient to medical floor with telemetry. 2. We will continue with neuro checks. Continue with IV fluids, antiemetics as needed. 3. Restart his Aricept and Namenda and consult Psychiatry for possible placement in dementia unit. 4. Monitor blood pressure closely. Resume antihypertensive agent. 5. We will continue to have patient on his insulin pump. 6. We will start patient on empiric antibiotics and check urine cultures. 7. Put patient on DVT prophylaxis with SCDs. 8. We will continue to follow, reassess and make further recommendation based on patient's clinical course. cc: MD Stephen Penn MD
[2019-02-11] MEDS: NS 1,000 ML IV SCH ×2 (03:56→15:32)
[2019-02-11 07:50] LABS: BASO# 0.08 X1000 (0.0-0.2); BASO% 1.1 % (0.0-0.8); EOS# 0.24 X1000 (0.0-0.7); EOS% 3.3 % (0.0-10.0); HEMATOCRIT 42.1 % (42.0-52.0); HEMOGLOBIN 14.2 g/dL (14.0-18.0); IMM GRAN# 0.02 X1000 (0.0-0.04); IMM GRAN% 0.3 % (0.0-0.5); LYMPH# 2.93 X1000 (1.2-3.4); LYMPH% 39.9 % (20.5-51.1); MCH 32.3 PG (27-31); MCHC 33.7 g/dL (33-37); MCV 95.7 FL (81-99); MONO# 0.54 X1000 (0.11-0.59); MONO% 7.3 % (1.7-9.3); MPV 10.2 FL (7.4-10.4); NEUT# 3.54 X1000 (1.4-6.5); NEUT% 48.1 % (42.2-75.2); PLT 230 X1000 (130-400); RDW 13.5 % (11.5-14.5); WBC 7.35 X1000 (4.8-10.8)
[2019-02-11] MEDS: SYNTHROID PO SCH (08:13)
[2019-02-11] MEDS: ASPIRIN PO SCH (08:14)
[2019-02-11] MEDS: LEXAPRO PO SCH (08:14)
[2019-02-11] MEDS: NAMENDA PO SCH (08:14)
[2019-02-11] MEDS: MYRBETRIQ E.R. PO SCH (08:14)
[2019-02-11] MEDS: NORVASC PO SCH (08:14)
[2019-02-11] MEDS: LOTENSIN PO SCH (08:14)
[2019-02-11] MEDS: ARICEPT PO SCH (08:14)
[2019-02-11] MEDS: BUSPAR PO SCH ×3 (08:14→20:12)
[2019-02-11 08:24] LABS: AGAP 11; BUN 21 mg/dL (8-22); CALCIUM 8.9 mg/dL (8.8-10.2); CHLORIDE 102 mmol/L (98-107); COSMO 279; ESTIMATED GFR > 60; GLUCOSE 76 mg/dL (70-104); POTASSIUM 3.7 mmol/L (3.5-5.1); SODIUM 139 mmol/L (136-145); TCO2 26 mmol/L (25-35)
[2019-02-11 09:07] LABS: EOS 2 % (1-10); LYMPHS 38 % (21-51); MONO 2 % (1-9); SEGS 58 % (42-75)
--- NOTE | 2019-02-11 12:20 | PROGRESS NOTE ---
DATE: 02/11/2019 SUBJECTIVE: Mr. Antunez is feeling better this morning. His agitation is much improved. No high- grade fever or chills. Denied any nausea or vomiting. Oral intake is fair. OBJECTIVE: Vital Signs: Noted. Neck: Supple. No JVD. Lungs: Bilateral good air entry present. CVS: S1 and S2 heard. Abdomen: Soft, globular. Bowel sounds present. Extremities: The patient does have evidence of dermatitis of both the legs. GARMENT TAG STRINGER: Alert, awake. Answering questions fair. Laboratory Data: Done today. CBC was fairly benign. Electrolytes were benign. Urinalysis done yesterday did reveal UTI. ASSESSMENT: 1. Patient admitted with delirium, found to have a urinary tract infection. 2. His other medical problems include hypertension, diabetes mellitus, dementia with behavioral disturbance. PLAN: Labs and medication noted. We will continue current treatment and close observation. cc: MD Stephen Sanchez MD
[2019-02-11] MEDS ORDERED: ATIVAN IM ONE (21:50)
[2019-02-11] MEDS: ROCEPHIN 1 GM in NS 50 ML IV SCH (22:01)
[2019-02-12] MEDS: SYNTHROID PO SCH (06:09)
[2019-02-12] MEDS ORDERED: NORCO-5 PO ONE (06:18)
[2019-02-12] MEDS: ASPIRIN PO SCH (08:29)
[2019-02-12] MEDS: LEXAPRO PO SCH (08:29)
[2019-02-12] MEDS: ARICEPT PO SCH (08:29)
[2019-02-12] MEDS: MYRBETRIQ E.R. PO SCH (08:29)
[2019-02-12] MEDS: NORVASC PO SCH (08:29)
[2019-02-12] MEDS: BUSPAR PO SCH ×2 (08:29→21:09)
[2019-02-12] MEDS: LOTENSIN PO SCH (08:29)
[2019-02-12] MEDS: NAMENDA PO SCH (08:29)
[2019-02-12 08:42] LABS: BASO# 0.06 X1000 (0.0-0.2); BASO% 0.6 % (0.0-0.8); EOS# 0.14 X1000 (0.0-0.7); EOS% 1.5 % (0.0-10.0); HEMATOCRIT 45.2 % (42.0-52.0); HEMOGLOBIN 15.3 g/dL (14.0-18.0); IMM GRAN# 0.02 X1000 (0.0-0.04); IMM GRAN% 0.2 % (0.0-0.5); LYMPH# 2.29 X1000 (1.2-3.4); LYMPH% 23.9 % (20.5-51.1); MCH 31.9 PG (27-31); MCHC 33.8 g/dL (33-37); MCV 94.4 FL (81-99); MONO# 0.75 X1000 (0.11-0.59); MONO% 7.8 % (1.7-9.3); MPV 10.1 FL (7.4-10.4); NEUT# 6.32 X1000 (1.4-6.5); PLT 246 X1000 (130-400); RBC 4.79 XMIL (4.7-6.1); RDW 13.3 % (11.5-14.5); WBC 9.58 X1000 (4.8-10.8)
[2019-02-12 09:54] LABS: AGAP 7; ALB/GLOB RATIO 1.2; ALBUMIN 3.7 g/dL (3.5-5.0); ALKALINE PHOSPHATASE 76 U/L (32-122); BUN 17 mg/dL (8-22); CALCIUM 9.1 mg/dL (8.8-10.2); CHLORIDE 101 mmol/L (98-107); COSMO 275; ESTIMATED GFR > 60; GLUCOSE 118 mg/dL (70-104); GOT 18 U/L (10-34); GPT 47 U/L (10-44); MAGNESIUM 1.9 mg/dL (1.5-2.7); POTASSIUM 3.9 mmol/L (3.5-5.1); SODIUM 136 mmol/L (136-145); TCO2 28 mmol/L (25-35); TOTAL BILIRUBIN 0.46 mg/dL (0.20-1.00); TOTAL PROTEIN 6.7 g/dL (6.3-8.3)
[2019-02-12] MEDS ORDERED: TUMS PO PRN (17:23)
--- NOTE | 2019-02-12 19:06 | PROGRESS NOTE ---
DATE: 02/12/2019 SUBJECTIVE: A 73-year-old white gentleman admitted to the hospital with altered mental status, UTI, delirium, agitation behavior. Events noted over the weekend. Review of systems, he is agitated at nighttime. Complains of heartburn. PAST MEDICAL HISTORY: Reviewed. PAST SURGICAL HISTORY: Reviewed. MEDICINES: Reviewed. ALLERGIES: Sulfa drugs, codeine, diazepam. PHYSICAL EXAMINATION: Vital Signs: Temperature is 97 degrees, pulse 94. Vitals are stable. General: He is confused. He is not oriented to time and place. HEENT: Within normal limits. Neck: Supple. Chest: Clear. Heart: Sounds are regular. Belly is soft, nontender. No obvious changes from the baseline and he has left-sided weakness due to right CVA. LABORATORY DATA: CBC: White cell count 9.5, hematocrit 45, platelets 246,000. Sodium 136, potassium 3.9. LFTs were normal. B12, TSH, free T4 normal. Urine tox screen was negative. Urine cultures gram-positive cocci. ASSESSMENT AND PLAN: 1. A 73-year-old white male admitted to the hospital with altered mental status, delirium with underlying dementia with agitation behavior. 2. Coronary artery disease. 3. Type 2 diabetes. 4. Hyperlipidemia, hypertension, hypothyroidism, rheumatoid arthritis, benign prostatic hypertrophy, left-sided weakness with right cerebrovascular accident. Plan of care is we will use the Seroquel as needed. Continue IV antibiotics with ceftriaxone. Will follow up on urine culture. 5. Dementia on Aricept and Namenda. 6. Hypothyroidism on Synthroid. 7. Depression on Lexapro. 8. Diabetes on insulin pump. We will follow up on sliding scale with insulin coverage. 9. Hypertension on Norvasc and benazepril. 10. Allergies on Mariah. 11. Discussed with the family and will follow up. LEVEL OF DOCUMENTATION: 35 minutes. cc: Stephen Mendiola MD
[2019-02-12] MEDS: SEROQUEL PO SCH (21:09)
[2019-02-12] MEDS: ALLEGRA PO SCH (21:10)
[2019-02-12] MEDS: HUMULIN R SUBQ SCH (23:02)
[2019-02-12] MEDS: ROCEPHIN 1 GM in NS 50 ML IV SCH (23:03)
[2019-02-13] MEDS: HUMULIN R SUBQ SCH ×4 (06:31→22:04)
[2019-02-13] MEDS: SYNTHROID PO SCH (06:32)
[2019-02-13] MEDS: MYRBETRIQ E.R. PO SCH (08:25)
[2019-02-13] MEDS: SEROQUEL PO SCH ×2 (08:26→22:03)
[2019-02-13] MEDS: ASPIRIN PO SCH (08:26)
[2019-02-13] MEDS: LEXAPRO PO SCH (08:26)
[2019-02-13] MEDS: BUSPAR PO SCH ×2 (08:26→22:03)
[2019-02-13] MEDS: LOTENSIN PO SCH (08:26)
[2019-02-13] MEDS: NAMENDA PO SCH (08:26)
[2019-02-13] MEDS: ARICEPT PO SCH (08:26)
[2019-02-13] MEDS: NORVASC PO SCH (08:26)
[2019-02-13 10:40] LABS: HEMOGLOBIN A1C 6.5 % (4.8-6.0)
[2019-02-13] MEDS: ROCEPHIN 1 GM in NS 50 ML IV SCH (22:03)
[2019-02-13] MEDS: ALLEGRA PO SCH (22:03)
[2019-02-14] MEDS: SYNTHROID PO SCH (06:00)
[2019-02-14] MEDS: HUMULIN R SUBQ SCH ×3 (06:00→16:45)
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
[2019-02-14] MEDS: BUSPAR PO SCH (10:20)
[2019-02-14] MEDS: MYRBETRIQ E.R. PO SCH (10:20)
[2019-02-14] MEDS: ASPIRIN PO SCH (10:20)
[2019-02-14] MEDS: SEROQUEL PO SCH (10:21)
[2019-02-14] MEDS: ARICEPT PO SCH (10:21)
[2019-02-14] MEDS: NORVASC PO SCH (10:21)
[2019-02-14] MEDS: NAMENDA PO SCH (10:21)
[2019-02-14] MEDS: LEXAPRO PO SCH (10:21)
[2019-02-14] MEDS: LOTENSIN PO SCH (10:22)
[2019-02-14 15:15] VITALS: BP 114/67
[2019-02-14] MEDS ORDERED: KEFLEX PO SCH (15:15)
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
== END 2019-02-14 16:46 ==
LOC: ED 17:30 → 3N 02-11 01:56 → SUATTDRO 02-11 01:56 → INTOOBSV 02-11 01:56
PROVIDERS: ADMIT Internal Medicine; ATTEND Internal Medicine